=== PATIENT | female | born 1950 | race Caucasian/White ===

== ENCOUNTER → 2017-01-07 | Outpatient (CLI) | payer OTHER ==
[~2017-01-07] MED LIST: FLUT16SP IH; HYDR-2666 PO; HYDR-2869 PO; HYDR25TA9 PO; METO50TA10 PO; Meclizine Hcl PO
--- NOTE | 2017-01-07 13:03 | KCIC ---
PROCEDURE Limited right foot ultrasound dated 01/07/2017. HISTORY Lump on foot. TECHNIQUE Limited sonographic imaging performed. COMPARISON None. FINDINGS Sonographic imaging was performed over the area of palpable abnormality. Palpable abnormality appears to correlate with a complex cystic structure that measures 2.5 x 2.4 x 1.0 centimeter, located laterally in the subcutaneous tissues. IMPRESSION Complex cystic nodule in the lateral subcutaneous tissues correlates with the area of palpable abnormality. Findings are nonspecific and may represent a postoperative fluid collection or liquefying hematoma. Underlying cystic mass cannot be excluded. Recommend correlation with clinical history. Electronically signed by: Wale Marte (Jan 07, 2017 13:02:20)
== END | disposition home or self-care (01) ==
LOC: KCIC US 12:07
PROVIDERS: ATTEND Podiatrist Foot & Ankle Surgery
DX: M67.471 Ganglion, right ankle and foot (principal)
CPT/HCPCS: 76881

== ENCOUNTER 2017-01-09 06:14 | Observation (INO) | payer OTHER ==
[~2017-01-09] VITALS: Ht 160 cm; Wt 115.2 kg
--- NOTE | 2017-01-09 06:23 | PHYS DOC ---
Adult General Chief Complaint Chief Complaint: MULTIPLE COMPLAINTS HPI HPI Patient is a 66 year old female who presents with multiple complaints. She states she's having vertigo type symptoms for the last 7 weeks and saw her primary care about this and has been on meclizine that she is purchase [id number]. Sometimes she has to use a cane now to ambulate. She also complains of generalized bodyaches his been going on for last week with intermittent nausea and vomiting and intermittent chest pain. She states chest pains are left-sided sharp in nature doesn't radiate and nothing makes it better or worse. Sometimes it goes away completely another time the symptoms last for hours. She denies any diaphoresis, shortness of breath associated with this pain. She states her sister had a history of aortic dissection 18 months ago. She denies history of smoking cessation, and takes medicines for her high blood pressure. Review of Systems Review of Systems Constitutional: Denies fever or chills [] Eyes: Denies change in visual acuity, redness, or eye pain [] HENT: Denies nasal congestion or sore throat [] Respiratory: Denies cough or shortness of breath [] Cardiovascular: No additional information not addressed in HPI [] GI: Denies abdominal pain, nausea, vomiting, bloody stools or diarrhea [] : Denies dysuria or hematuria [] Musculoskeletal: Denies back pain or joint pain [] Integument: Denies rash or skin lesions [] Neurologic: Denies headache, focal weakness or sensory changes [] Endocrine: Denies polyuria or polydipsia [] Current Medications Current Medications Current Medications Medications (Trade) Dose Ordered Sig/Jerry Start Time Stop Time Status Last Admin Dose Admin Morphine Sulfate 2 mg 2 mg PRN Q15MIN PRN 01/09/17 06:30 01/10/17 06:29 01/09/17 06:47 2 MG Ondansetron HCl (Zofran) 4 mg PRN Q8HRS PRN 01/09/17 08:15 01/10/17 08:14 UNV Sodium Chloride (Iv Sodium Chloride 0.9% 1000ml Bag) 1,000 ml @ 1,000 mls/hr Q1H 01/09/17 06:30 01/09/17 07:29 DC 01/09/17 06:42 1,000 MLS/HR Allergies Allergies Allergies Coded Allergies Type Severity Reaction Last Updated Verified No Known Drug Allergies 01/09/17 No Physical Exam Physical Exam Constitutional: Well developed, well nourished, no acute distress, non-toxic appearance. [] HENT: Normocephalic, atraumatic, bilateral external ears normal, oropharynx moist, no oral exudates, nose normal. [] Eyes: PERRLA, EOMI, conjunctiva normal, no discharge. [] Neck: Normal range of motion, no tenderness, supple, no stridor. [] Cardiovascular:Heart rate regular rhythm, no murmur [] Lungs & Thorax: Bilateral breath sounds clear to auscultation [] Abdomen: Bowel sounds normal, soft, no tenderness, no masses, no pulsatile masses. [] Skin: Warm, dry, no erythema, no rash. [] Back: No tenderness, no CVA tenderness. [] Extremities: No tenderness, no cyanosis, no clubbing, ROM intact, no edema. [] Neurologic: Alert and oriented X 3, normal motor function, normal sensory function, no focal deficits noted. [] Psychologic: Affect normal, judgement normal, mood normal. [] Current Patient Data Vital Signs Vital Signs Date Time Temp Pulse Resp B/P Pulse Ox O2 Delivery O2 Flow Rate FiO2 01/09/17 07:17 88 16 166/66 92 Room Air 01/09/17 06:27 99.0 99.0 Lab Values Laboratory Tests Test 01/09/17 06:34 01/09/17 07:12 White Blood Count 12.1x10^3/uL (4.0-11.0) H Red Blood Count 4.24x10^6/uL (3.50-5.40) Hemoglobin 13.8g/dL (12.0-15.5) Hematocrit 39.7% (36.0-47.0) Mean Corpuscular Volume 94fL (79-100) Mean Corpuscular Hemoglobin 33pg (25-35) Mean Corpuscular Hemoglobin Concent 35g/dL (31-37) Red Cell Distribution Width 13.6% (11.5-14.5) Platelet Count 225x10^3/uL (140-400) Neutrophils (%) (Auto) 88% (31-73) H Lymphocytes (%) (Auto) 7% (24-48) L Monocytes (%) (Auto) 4% (0-9) Eosinophils (%) (Auto) 1% (0-3) Basophils (%) (Auto) 1% (0-3) Neutrophils # (Auto) 10.6x10^3uL (1.8-7.7) H Lymphocytes # (Auto) 0.9x10^3/uL (1.0-4.8) L Monocytes # (Auto) 0.5x10^3/uL (0.0-1.1) Eosinophils # (Auto) 0.1x10^3/uL (0.0-0.7) Basophils # (Auto) 0.1x10^3/uL (0.0-0.2) Platelet Estimate Pending Prothrombin Time 12.8SEC (11.7-14.0) Prothrombin Time INR 1.0 (0.8-1.1) Sodium Level 138mmol/L (136-145) Potassium Level 3.7mmol/L (3.5-5.1) Chloride Level 101mmol/L (98-107) Carbon Dioxide Level 29mmol/L (21-32) Anion Gap 8 (6-14) Blood Urea Nitrogen 14mg/dL (7-20) Creatinine 0.8mg/dL (0.6-1.0) Estimated GFR (Cockcroft-Gault) 72.2 Glucose Level 122mg/dL (70-99) H Calcium Level 8.7mg/dL (8.5-10.1) Magnesium Level 1.6mg/dL (1.8-2.4) L Total Bilirubin 0.3mg/dL (0.2-1.0) Direct Bilirubin 0.1mg/dL (0.0-0.2) Aspartate Amino Transferase (AST) 20U/L (15-37) Alanine Aminotransferase (ALT) 28U/L (14-59) Alkaline Phosphatase 98U/L (46-116) Creatine Kinase 73U/L (26-192) Creatine Kinase MB (Mass) 0.7ng/mL (0.0-3.6) Creatine Kinase MB Relative Index 1.0% (0-4) Troponin I Quantitative < 0.017ng/mL (0.000-0.055) UH-Vmw-M-Type Natriuretic Peptide 177pg/mL (0-124) H Total Protein 7.6g/dL (6.4-8.2) Albumin 3.2g/dL (3.4-5.0) L Lipase 81U/L (73-393) Thyroid Stimulating Hormone (TSH) 1.107uIU/mL (0.358-3.74) Urine Collection Type Unknown Urine Color Yellow Urine Clarity Turbid Urine pH 8.0 Urine Specific [place] 1.020 Urine Protein Negativemg/dL (NEG-TRACE) Urine Glucose (UA) Negativemg/dL (NEG) Urine Ketones (Stick) Negativemg/dL (NEG) Urine Blood Negative (NEG) Urine Nitrite Negative (NEG) Urine Bilirubin Negative (NEG) Urine Urobilinogen Dipstick 0.2mg/dL (0.2 mg/dL) Urine Leukocyte Esterase Negative (NEG) Urine RBC 0/HPF (0-2) Urine WBC 0/HPF (0-4) Urine Squamous Epithelial Cells Few/LPF Urine Amorphous Sediment Present/HPF Urine Bacteria 0/HPF (0-FEW) Laboratory Tests 01/09/17 06:34 Laboratory Tests 01/09/17 06:34 EKG EKG EKG shows sinus rhythm rate of [address] changes or T-wave inversions, incomplete right bundle-branch block morphology noted, QTC 362 ms, normal axis, as interpreted by me. Radiology/Procedures Radiology/Procedures [facility] [address] [place], [place] [id number] IMAGING REPORT Signed PATIENT: AKOSUA GALINDO ACCOUNT: [id number] : 1950 LOCATION: ER AGE: 66 SEX: F EXAM STATUS: REG ER ORD. PHYSICIAN: RUDDY GIFFODR MD REASON: vertigo PROCEDURE: CT HEAD WO CONTRAST CT of the head without contrast, 01/09/2017: History: Vertigo The ventricles are within normal limits in size. There is no shift of the midline structures. There is no evidence of acute intracranial hemorrhage or mass effect. The mastoid sinuses are clear. There is only minimal mucosal thickening in the right ethmoid sinus. IMPRESSION: No acute intracranial abnormality is detected. PQRS Compliance Statement: One or more of the following individualized dose reduction techniques were utilized for this examination: 1. Automated exposure control 2. Adjustment of the mA and/or kV according to patient size 3. Use of iterative reconstruction technique DICTATED and SIGNED BY: BAM PRIETO MD DATE: 01/09/17 0732 CC: AMAN DEXTER MD; RUDDY GIFFORD MD ~ [facility] [address] [place] [address] IMAGING REPORT Signed PATIENT: AKOSUA GALINDO ACCOUNT: [id number] : 1950 LOCATION: ER AGE: 66 SEX: F EXAM STATUS: REG ER ORD. PHYSICIAN: RUDDY GIFFORD MD REASON: chest pain PROCEDURE: PORTABLE CHEST 1V Portable chest, 01/09/2017: History: Chest pain The heart size and pulmonary vascularity are normal. There is minimal linear scarring or atelectasis in the left lateral costophrenic angle. The lungs are otherwise clear. There is no evidence of pleural fluid. IMPRESSION: Minimal left basilar linear scarring or atelectasis.. DICTATED and SIGNED BY: BAM PRIETO MD DATE: 01/09/17 0808 CC: AMAN DEXTER MD; RUDDY GIFFORD MD ~ Impressions: Chest pain Dizziness Course & Med Decision Making Course & Med Decision Making Pertinent Labs and Imaging studies reviewed. (See chart for details) EKG, labs, CT of her head does not show any acute abnormalities. Do not believe she is having a dissection that her sister had her chest x-ray does not show any acute abnormalities and her aortic knob looks fine. Her story does not match up with that of an aortic dissection. Patient is being admitted to the hospitalist I will obtain an MRI of her brain to further evaluate her dizziness that she's had for several weeks and obtained cardiology consultation. Patient' s agreeable plan is in stable condition this time. Dragon Disclaimer Dragon Disclaimer This electronic medical record was generated, in whole or in part, using a voice recognition dictation system. Departure Departure Referrals: NO PCP (PCP) RUDDY GIFFORD MD Jan 09, 2017 06:23
[2017-01-09] MEDS ORDERED: IV NORMAL SALINE 1000ML BAG 1,000 ML IV SCH (06:30)
[2017-01-09] MEDS ORDERED: MORPHINE SULFATE 2 MG/ML DISP.SYRIN. IV/SQ PRN (06:30)
[2017-01-09 06:46] LABS: BASO # 0.1 x10^3/uL (0.0-0.2); BASO % 1 % (0-3); EOS % 1 % (0-3); HEMATOCRIT 39.7 % (36.0-47.0); HEMOGLOBIN 13.8 g/dL (12.0-15.5); LYMPH # 0.9 x10^3/uL (1.0-4.8); LYMPH % 7 % (24-48); MEAN CORPUSCULAR HEMOGLOBIN 33 pg (25-35); MEAN CORPUSCULAR HGB CONC 35 g/dL (31-37); MEAN CORPUSCULAR VOLUME 94 fL (79-100); MONO % 4 % (0-9); NEUT % 88 % (31-73); PLATELET COUNT 225 x10^3/uL (140-400); RED BLOOD COUNT 4.24 x10^6/uL (3.50-5.40); RED CELL DISTRIBUTION WIDTH 13.6 % (11.5-14.5); WHITE BLOOD COUNT 12.1 x10^3/uL (4.0-11.0)
--- NOTE | 2017-01-09 06:55 | EKG ---
[facility] [address] [place] [address] Test Date: 2017-01-09 Test Time: 06:28:14 Pat Name: AKOSUA GALINDO Department: Room: Gender: F Rib Sawyer: : 1950 Requested By: RUDDY GIFFORD Order Number: [id number] Reading MD: Measurements Intervals [place] Rate: 92 P: 28 FL: 182 QRS: 36 QRSD: 92 T: 57 QT: 362 QTc: 453 Interpretive Statements SINUS RHYTHM INCOMPLETE RIGHT BUNDLE BRANCH BLOCK T ABNORMALITY IN HIGH LATERAL LEADS ABNORMAL ECG RI6.01 No previous ECG available for comparison
[2017-01-09 07:02] LABS: CALCIUM 8.7 mg/dL (8.5-10.1); CREATININE 0.8 mg/dL (0.6-1.0); GFR 72.2; POTASSIUM 3.7 mmol/L (3.5-5.1)
[2017-01-09 07:03] LABS: PROTHROMBIN TIME PATIENT 12.8 SEC (11.7-14.0)
[2017-01-09 07:08] LABS: ALBUMIN 3.2 g/dL (3.4-5.0); DIRECT BILIRUBIN 0.1 mg/dL (0.0-0.2); MAGNESIUM 1.6 mg/dL (1.8-2.4); TOTAL BILIRUBIN 0.3 mg/dL (0.2-1.0); TOTAL PROTEIN 7.6 g/dL (6.4-8.2)
--- NOTE | 2017-01-09 07:15 | RAD ---
Portable chest, 01/09/2017: History: Chest pain The heart size and pulmonary vascularity are normal. There is minimal linear scarring or atelectasis in the left lateral costophrenic angle. The lungs are otherwise clear. There is no evidence of pleural fluid. IMPRESSION: Minimal left basilar linear scarring or atelectasis..
[2017-01-09 07:16] LABS: CKMB MASS 0.7 ng/mL (0.0-3.6)
--- NOTE | 2017-01-09 07:37 | RAD ---
CT of the head without contrast, 01/09/2017: History: Vertigo The ventricles are within normal limits in size. There is no shift of the midline structures. There is no evidence of acute intracranial hemorrhage or mass effect. The mastoid sinuses are clear. There is only minimal mucosal thickening in the right ethmoid sinus. IMPRESSION: No acute intracranial abnormality is detected. PQRS Compliance Statement: One or more of the following individualized dose reduction techniques were utilized for this examination: 1. Automated exposure control 2. Adjustment of the mA and/or kV according to patient size 3. Use of iterative reconstruction technique
[2017-01-09 07:40] LABS: BILIRUBIN,URINE NEGATIVE (NEG); GLUCOSE,URINE NEGATIVE (NEG); NITRITE,URINE NEGATIVE (NEG); PROTEIN,URINE NEGATIVE (NEG-TRACE); UROBILINOGEN,URINE 0.2 mg/dL (0.2 mg/dL)
[2017-01-09 08:00] LABS: BACTERIA,URINE 0 /HPF (0-FEW); RBC,URINE 0 /HPF (0-2); SQUAMOUS EPITHELIAL CELL,UR FEW /LPF; WBC,URINE 0 /HPF (0-4)
[2017-01-09] MEDS ORDERED: ONDANSETRON PF 4 MG/2 ML VIAL. IV PRN (08:15)
[2017-01-09] MEDS ORDERED: ASPIRIN 325 MG TABLET PO ONE (08:30)
[2017-01-09] MEDS ORDERED: MAGNESIUM SULFATE 2GM 50 ML IV ONE (09:00)
--- NOTE | 2017-01-09 09:02 | PDOC2 ---
CARDIAC CONSULT DATE OF CONSULT Date of Consult DATE: 01/09/17 TIME: 08:56 REASON FOR CONSULT Reason for Consult: Chest pain REFERRING PHYSICIAN Referring Physician: Kaleb SOURCE Source: Chart review, Patient HISTORY OF PRESENT ILLNESS HISTORY OF PRESENT ILLNESS This is a pleasant 66 yo female admitted for complains of chest pain, body aches and vertigo. Reports that in the last 2 months she has been having intermittent left chest discomfort as well as vertigo. She does have hx of migraine which is controlled and takes excedrin for refractory episodes. She has been doing well otherwise till she got to [place]. [place] in high [place] and she started feeling SOA. She came home Saturday last week and her symptoms has increased in frequency. Her vertigo is more. Since Saturday when her CP occurs it last for about 20 minutes then dissipates. Her chest pain is still intermittent but more frequent and actually worse last night describing it as sharp that radiated to mid back. Also she has been feeling no energy and positive for mild HARRISON. Complains of body aches. Also nausea with her vertigo. Denies any CAD, VTE, falls, injury, fever or chills, CVA. No unilateral weakness, visual or auditory disturbances nor LEWIS. To add she is positive for HTN, HLP, varicose veins. Verbalized that they drove to [place] to [place] and back. PAST MEDICAL HISTORY Cardiovascular: HTN, Hyperlipidemia, Other (leg varicose veins) Pulmonary: No pertinent hx CENTRAL NERVOUS SYSTEM: Migraine, Other (RLS) GI: GERD, Other (hiatal hernia) Heme/Onc: No pertinent hx Hepatobiliary: No pertinent hx Psych: No pertinent hx Musculoskeletal: Osteoarthritis Rheumatologic: No pertinent hx Infectious disease: No pertinent hx ENT: No pertinent hx Renal/: UTI, Urinary Incontinence Endocrine: No pertinent hx Dermatology: No pertinent hx PAST SURGICAL HISTORY Past Surgical History: Total knee replacement (bilateral ), Other FAMILY HISTORY Family History: Coronary Artery Disease (Mother in her 60s), Other (sister aortic dissection; brother cardiac arrest at 50s) SOCIAL HISTORY Smoke: No ALCOHOL: occassional Drugs: None Lives: with Family CURRENT MEDICATIONS CURRENT MEDICATIONS Current Medications Medications (Trade) Dose Ordered Sig/Jerry Route PRN Reason Start Time Stop Time Status Last Admin Dose Admin Morphine Sulfate 2 mg 2 mg PRN Q15MIN PRN IV/SQ PAIN GREATER THAN 3/10 01/09/17 06:30 01/10/17 06:29 01/09/17 06:47 Sodium Chloride (Iv Sodium Chloride 0.9% 1000ml Bag) 1,000 ml @ 1,000 mls/hr Q1H IV 01/09/17 06:30 01/09/17 07:29 DC 01/09/17 06:42 ALLERGIES ALLERGIES: Coded Allergies: No Known Drug Allergies (Unverified , 01/09/17) ROS Review of System 14 point ROS evaluated with pertinent positives noted per HPI PHYSICAL EXAM General: Alert, Oriented X3, Cooperative, No acute distress HEENT: Atraumatic, Mucous membr. moist/pink Lungs: Clear to auscultation, Normal air movement Heart: Regular rate, Normal S1, Normal S2, No murmurs Abdomen: Soft, No tenderness Extremities: No cyanosis, No edema Skin: No breakdown, No significant lesion Neuro: Normal speech, Sensation intact Psych/Mental Status: Mental status NL, Mood NL MUSCULOSKELETAL: Osteoarthritic changes both hands VITALS VITALS Vital Signs Date Time Temp Pulse Resp B/P Pulse Ox O2 Delivery O2 Flow Rate FiO2 01/09/17 07:17 88 16 166/66 92 Room Air 01/09/17 06:27 99.0 99.0 LABS Lab: Laboratory Tests Test 01/09/17 06:34 01/09/17 07:12 White Blood Count 12.1x10^3/uL (4.0-11.0) Red Blood Count 4.24x10^6/uL (3.50-5.40) Hemoglobin 13.8g/dL (12.0-15.5) Hematocrit 39.7% (36.0-47.0) Mean Corpuscular Volume 94fL (79-100) Mean Corpuscular Hemoglobin 33pg (25-35) Mean Corpuscular Hemoglobin Concent 35g/dL (31-37) Red Cell Distribution Width 13.6% (11.5-14.5) Platelet Count 225x10^3/uL (140-400) Neutrophils (%) (Auto) 88% (31-73) Lymphocytes (%) (Auto) 7% (24-48) Monocytes (%) (Auto) 4% (0-9) Eosinophils (%) (Auto) 1% (0-3) Basophils (%) (Auto) 1% (0-3) Neutrophils # (Auto) 10.6x10^3uL (1.8-7.7) Lymphocytes # (Auto) 0.9x10^3/uL (1.0-4.8) Monocytes # (Auto) 0.5x10^3/uL (0.0-1.1) Eosinophils # (Auto) 0.1x10^3/uL (0.0-0.7) Basophils # (Auto) 0.1x10^3/uL (0.0-0.2) Prothrombin Time 12.8SEC (11.7-14.0) Prothromb Time International Ratio 1.0 (0.8-1.1) Sodium Level 138mmol/L (136-145) Potassium Level 3.7mmol/L (3.5-5.1) Chloride Level 101mmol/L (98-107) Carbon Dioxide Level 29mmol/L (21-32) Anion Gap 8 (6-14) Blood Urea Nitrogen 14mg/dL (7-20) Creatinine 0.8mg/dL (0.6-1.0) Estimated GFR (Cockcroft-Gault) 72.2 Glucose Level 122mg/dL (70-99) Calcium Level 8.7mg/dL (8.5-10.1) Magnesium Level 1.6mg/dL (1.8-2.4) Total Bilirubin 0.3mg/dL (0.2-1.0) Direct Bilirubin 0.1mg/dL (0.0-0.2) Aspartate Amino Transf (AST/SGOT) 20U/L (15-37) Alanine Aminotransferase (ALT/SGPT) 28U/L (14-59) Alkaline Phosphatase 98U/L (46-116) Creatine Kinase 73U/L (26-192) Creatine Kinase MB (Mass) 0.7ng/mL (0.0-3.6) Creatine Kinase MB Relative Index 1.0% (0-4) Troponin I Quantitative < 0.017ng/mL (0.000-0.055) [id number]-Type Natriuretic Peptide 177pg/mL (0-124) Total Protein 7.6g/dL (6.4-8.2) Albumin 3.2g/dL (3.4-5.0) Lipase 81U/L (73-393) Thyroid Stimulating Hormone (TSH) 1.107uIU/mL (0.358-3.74) Urine Collection Type Unknown Urine Color Yellow Urine Clarity Turbid Urine pH 8.0 Urine Specific [place] 1.020 Urine Protein Negativemg/dL (NEG-TRACE) Urine Glucose (UA) Negativemg/dL (NEG) Urine Ketones (Stick) Negativemg/dL (NEG) Urine Blood Negative (NEG) Urine Nitrite Negative (NEG) Urine Bilirubin Negative (NEG) Urine Urobilinogen Dipstick 0.2mg/dL (0.2 mg/dL) Urine Leukocyte Esterase Negative (NEG) Urine RBC 0/HPF (0-2) Urine WBC 0/HPF (0-4) Urine Squamous Epithelial Cells Few/LPF Urine Amorphous Sediment Present/HPF Urine Bacteria 0/HPF (0-FEW) ASSESSMENT/PLAN ASSESSMENT/PLAN 1. Chest pain: family hx of AoD(sister), SCA(brother), recent long distance travel 2. Acute vs chronic sinusitis: likely inducing vertigo 3. HTN: controlled 4. Hypomagnesemia 5. Morbid obesity 6. LE varicose veins Recommendations 1. CTA chest today, if no acute changes then will proceed with 2 day MPI with rest this afternoon and stress tomorrow 2. TTE today, check TSH, lipids 3. Replace Mg. Problems: EFE BURROWS APRN Jan 09, 2017 09:02
--- NOTE | 2017-01-09 10:12 | RAD ---
PROCEDURE MRI of the brain without contrast 01/09/2017 HISTORY Recent dizziness and headaches. TECHNIQUE Unenhanced T1 weighted sagittal and axial, T2 weighted axial and coronal and FLAIR, gradient echo and diffusion weighted axial images of the brain were obtained. FINDINGS The ventricles and sulci are within normal limits in size and configuration. Patchy and multiple small focal areas of abnormally increased signal intensity are seen within the periventricular and subcortical white matter of both cerebral hemispheres on the FLAIR and T2 weighted images consistent most likely with areas of relatively mild small vessel ischemic disease. No acute parenchymal abnormality is seen. No extra-axial fluid collection is noted. There is no MRI evidence of acute ischemia/infarction. Mild mucosal thickening is seen scattered throughout the paranasal sinuses. There is a small right mastoid effusion. Normal flow voids are seen within the major vascular structures surrounding the brain parenchyma. IMPRESSION No acute parenchymal abnormality is seen. Electronically signed by: Chris Keen MD (Jan 09, 2017 10:11:28)
[2017-01-09 10:13] LABS: CHOLESTEROL/HDL RATIO 2.4
[2017-01-09 10:14] LABS: PLT ESTIMATE ADEQUATE (ADEQUATE)
[2017-01-09] MEDS ORDERED: CONTRAST GIVEN MC PRN (10:15)
[2017-01-09] MEDS ORDERED: IOHEXOL 300 MG/ML 75 ML VIAL IV ONE (10:15)
--- NOTE | 2017-01-09 10:22 | ACF ---
Admit Criteria Forms Admit Criteria Forms Admit Criteria Forms CARDIOLOGY GRG Clinical Indications for Admission to Inpatient Care ( Place 'X' for any and all applicable criteria): Hospital admission is needed for appropriate care of the patient because of ANY ONE of the following (1): [ ] I. Hemodynamic instability as indicated by ALL of the following (1)(2)(3) (4)(5) [ ]a) Vital signs or other findings not as expected for chronic patient condition or baseline [ ]b) Instability indicated by ANY ONE of the following: [ ]i) Hypotension [ ]ii) Symptomatic Tachycardia unresponsive to treatment ( e.g., analgesia, fluids, sedation as indicated) [ ]iii) Inadequate perfusion indicated by ANY ONE of the following: [ ] 1) Lactic acidosis (> 2 mmol/L) [ ] 2) New abnormal capillary refill (> 3 seconds) [ ] 3) Reduced urine output [ ] 4) New altered mental status [ ]iv) Orthostatic vital sign changes unresponsive to treatment (e.g., fluids) [ ]v) IV inotropic or vasopressor medication required to maintain adequate blood pressure or perfusion [ ] II. Severe heart failure as indicated by ANY ONE of the following(17)(18) [ ]a) Respiratory distress [ ]b) Hypotension [ ]c) Anasarca (refractory to outpatient therapy) [ ]d) Cardiac arrhythmias of immediate concern [ ]e) Myocardial ischemia [ ] III. Cardiac arrhythmias or findings of immediate concern indicated by ANY ONE of the following (19)(20): [ ] a) Heart rhythms that are inherently dangerous or unstable indicated by ANY ONE of the following (21)(22)(23): [ ] i) Resuscitated ventricular fibrillation or cardiac arrest [ ] ii) Ventricular escape rhythm [ ] iii) Sustained ventricular tachycardia (30 seconds or more of ventricular rhythm at greater than 100 beats per minute) [ ] iv) Nonsustained ventricular tachycardia and ANY ONE of the following: [ ] 1) Suspected cardiac ischemia as cause or consequence of ventricular tachycardia [ ] 2) In setting of acute myocarditis [ ] b) Unstable cardiac conduction defects indicated by ANY ONE of the following(23)(24)(25) [ ] i) Type II second-degree atrioventricular block [ ]ii) Third-degree atrioventricular block [ ]iii) New-onset left bundle branch block with suspected myocardial ischemia [ ]c) Any heart rhythm and ANY ONE of the following (21)(22)(26)(27) (28) [ ] i) Continuous long-term ECG monitoring needed (e.g., initiation of drug requiring monitoring for more than 24 hours) [ ] ii) Patient has automatic implanted cardioverter defibrillator that is repeatedly firing, malfunctioning, or in need of immediate adjustment of settings beyond the scope of ambulatory or observation care [ ]d) Heart rhythms of concern due to ANY ONE of the following: [ ] i) Hypotension [ ] ii) Respiratory distress [ ] iii) Association with other significant symptoms (e.g., bradycardia with syncope or ongoing dizziness, supraventricular tachycardia with chest pain (14)(15)(17) [ ] IV. Monitoring for cardiac contusion beyond the scope of observation care needed [A](30)(31)(32) [ ] V. Surgical or device complication (e.g., valve replacement complication , pacemaker dysfunction) (35)(41)(44)(45)(46) [ ] . Inpatient palliative care needed. [B](49) Also use Inpatient Palliative Care Criteria [ ] VII. Nonbacterial thrombotic (marantic) endocarditis (36)(43)(47)(48) [X] VIII. Cardiology condition, symptom, or finding for which emergency and observation care has failed or are not considered appropriate. [ ] IX. Acute valvular disease requiring inpatient as indicated by ANY ONE of the following (41) [ ]a) Acute valvular regurgitation (42) [ ]b) Noninfectious valvulitis (43) [ ]c) Obstructive valve thrombosis [ ]d) Paravalvular leak [ ]e) Other significant valvular disorder remaining after emergency or observation level of care (as appropriate) [ ]X. Pericardial disease requiring inpatient treatment as indicated by ANY ONE of the following (33)(34)(35)(36)(37) [ ]a) Suspected tamponade (38)(39)(40) [ ]b) Hemopericardium [ ]c) Other significant pericardial disorder remaining after emergency or observation level of care (as appropriate) [ ] XI. Cardiac ischemia beyond scope of emergency and observation care. [ ] XII. Hypertension requiring inpatient treatment as indicated by ANY ONE of the following (6)(7)(8) [ ]a) SBP greater than 220 mm Hg or DBP greater than 120 mmHg despite treatment [ ]b) SBP greater than 140 mm Hg or DBP greater than 100 mm Hg with evidence of acute end organ damage as indicated by ANY ONE of the following [ ] i) Encephalopathy [ ] ii) Acute renal failure as indicated by new onset of ANY ONE of the following (9)(10)(11)(12)(13) [ ]1) 3-fold rise in serum creatinine from baseline [ ]2) Serum creatinine greater than 4 mg/dL ( 354 micromoles/L) with acute rise greater than 0.5 mg/dL (44.2 micromoles/L) [ ]3) Reduction of more than 75% in estimated glomerular filtration rate from baseline [ ]4) Estimated glomerular filtration rate less than 35 mL/min/1.73m2 (0.59 mL/sec/1.73m2) in child up to 18 years of age [ ]5) Cessation of urine output indicated by ALL of the following [ ]A. Adequate volume status [ ]B. Inadequate urine output as indicated by ANY ONE of the following [ ]a. Urine output less than 0.3 mL/kg/hr for 24 hours [ ]b. Anuria (urine output less than 0.1 mL/kg/hr) for 12 hours [ ] iii) Aortic dissection [ ] iv) Myocardial Ischemia [ ] v) Left ventricular heart failure [ ]vi) Retinal Hemorrhage [ ]vii) Other significant finding [ ]c) Hypertension in child requiring inpatient treatment as indicated by ALL of the following(14)(15)(16) [ ] i) Outpatient treatment not effective, not available, or not appropriate [ ]ii) SBP or DBP greater than 95th percentile for age [ ]iii) Evidence of acute end organ damage as indicated by ANY ONE of the following [ ]1) Altered mental status [ ]2) Acute renal failure as indicated by new onset of ANY ONE of the following(9)(10)(11)(12)(13) [ ]A. 3-fold rise in serum creatinine from baseline [ ]B. Serum creatinine greater than 4 mg/dL (354 micromoles/L) with acute rise greater than 0.5 mg/dL (44.2 micromoles/L) [ ]C. Reduction of more than 75% in estimated glomerular filtration rate from baseline [ ]D. Estimated glomerular filtration rate less than 35 mL/min/1.73m2 (0.59 mL/sec/1.73m2) in child up to 18 years of age [ ]E. Cessation of urine output indicated by ALL of the following [ ]a. Adequate volume status [ ]b. Inadequate urine output as indicated by ANY ONE of the following [ ]i) Urine output less than 0.3 mL/kg/hr for 24 hours [ ]ii) Anuria ( urine output less than 0.1 mL/kg/hr) for 12 hours [ ]3) Severe headache [ ]4) Visual disturbance [ ]5) Retinal hemorrhage [ ]6) Other significant finding [ ]XIII. Complications of transplanted heart indicated by ANY ONE of the following(61): [ ]a) Acute graft rejection requiring inpatient management (eg, intravenous immunosuppression)(62)(63) [ ]b) Acute graft heart failure indicated by ANY ONE of the following(64): [ ]i) Hemodynamic instability [ ]ii) Cardiac arrhythmias of immediate concern [ ]iii) Pulmonary edema that is very severe (eg, mechanical ventilation needed, imminent or likely, need for 100% oxygen to keep oxygen saturation above 90%) [ ]iv) Pulmonary edema that is persistent as indicated by ALL of the following: [ ]1) New need for oxygen therapy to keep oxygen saturation above 90% (or increased FiO2 need from baseline) [ ]2) Has not improved sufficiently with emergency department or observation care IV diuretics or other heart failure treatments[E] [ ]v) Altered mental status that is severe or persistent [ ]vi) Increased creatinine (new on laboratory test) with reduction of more than 50% in estimated glomerular filtration rate from baseline [ ]vii) Progressively (ongoing) rising creatinine (known from past laboratory test) with reduction of more than 25% in estimated glomerular filtration rate from baseline [ ]viii) Acute renal failure [ ]ix) Acute peripheral ischemia (eg, examination shows pulseless, cool, mottled, or cyanotic extremity) [ ]x) Pulmonary artery catheter monitoring needed [ ]xi) Other sign or symptom of heart failure requiring inpatient treatment (ie, too severe or not responsive to outpatient and observation care treatment) [ ]c) Infection requiring inpatient management (eg, Hemodynamic instability, need for intravenous antimicrobial treatment)(66)(67)(68)(69)(70) [ ]d) Cardiac allograft vasculopathy requiring inpatient management ( eg evidence of cardiac ischemia)(71) [ ]e) Other complication of transplanted heart (eg, stroke, severe pulmonary hypertension, severe valvular dysfunction) requiring inpatient management(72) The original [employer] content created by [facility] has been revised. The portions of the content which have been revised are identified through the use of italic text or in bold, and [facility] has neither reviewed nor approved the modified material. All other unmodified content is copyright [employer] [facility] [employer]. Please see references footnoted in the original [facility] [employer] edition 2016 ODESSA MIXON Jan 09, 2017 10:21
--- NOTE | 2017-01-09 12:11 | RAD ---
CTA of the chest with contrast, 01/09/2017: History: Chest pain, possible pulmonary emboli Multidetector CT imaging was performed following an IV bolus injection of iodinated contrast material. Multiplanar reconstructions were produced including coronal and sagittal MIP images. The main pulmonary artery is enlarged measuring 3.8 cm in width. No filling defects are seen in the pulmonary arteries to suggest pulmonary emboli. The thoracic aorta is of normal caliber. There is no evidence of aortic dissection. There are calcified mediastinal and left hilar lymph nodes compatible with old granulomatous disease. No mediastinal or hilar adenopathy is evident. There is a small hiatal hernia. There are granulomatous calcifications in the left upper lobe. There are a few scattered linear parenchymal scars. There is mild dependent atelectasis in both lungs. No pulmonary mass or significant consolidation is seen. There is no evidence of pleural fluid. There are moderate scattered spurs in the spine. There is mild loss of height of the T12 vertebral body of indeterminate age. IMPRESSION: 1. No CT evidence of central pulmonary emboli. 2. Mild enlargement of the main pulmonary artery. 3. Small hiatal hernia. 4. Mild T12 vertebral compression deformity of indeterminate age. PQRS Compliance Statement: One or more of the following individualized dose reduction techniques were utilized for this examination: 1. Automated exposure control 2. Adjustment of the mA and/or kV according to patient size 3. Use of iterative reconstruction technique
[2017-01-09 12:43] VITALS: BP 131/75
[2017-01-09 12:44] VITALS: BP 131/75
[2017-01-09 13:00] VITALS: BP 131/75
[2017-01-09 14:50] VITALS: BP 135/73
--- NOTE | 2017-01-09 15:38 | CARD ---
APPROVED REPORT EXAM: Two-dimensional and M-mode echocardiogram with Doppler and color Doppler. Other Information Quality : GoodHR: 90bpm Rhythm : NSR INDICATION Chest Pain RISK FACTORS Hypertension Obesity 2D DIMENSIONS RVDd2.9 (2.9-3.5cm)Left Atrium(2D)3.6 (1.6-4.0cm) IVSd1.0 (0.7-1.1cm)Aortic Root(2D)1.8 (2.0-3.7cm) LVDd4.9 (3.9-5.9cm)LVOT Diameter2.3 (1.8-2.4cm) PWd0.9 (0.7-1.1cm)LVDs2.8 (2.5-4.0cm) FS (%) 43.2 %SV83.2 ml LVEF(%)74.2 (>50%) Aortic Valve AoV Peak Supa.201.7cm/sAoV VTI36.3cm AO Peak GR.16.3mmHgLVOT VTI 24.92cm AO Mean GR.9mmHg Mitral Valve MV E Tyoemnfc42.4cm/sMV E Peak Gr.3mmHg MV DECEL [id number] A Krokcedp36.1cm/s MV E Mean Gr.2mmHgE/A Ratio0.8 MV A [id number] TDI Lateral E' P. V9.27cm/sMedial E' P. V9.98cm/s E/Lateral E'8.2E/Medial E'7.7 Tricuspid Valve TR P. [id number]/sRAP [id number] TR Peak Gr.45mmHg Pulmonary Vein S1 Wnotnjdv24.5cm/sS2 Dvfbsqaa69.55cm/s D2 Aszndmaw55.5cm/sPVa [id number] LEFT VENTRICLE The left ventricle is normal size. There is normal left ventricular wall thickness. The left ventricu lar systolic function is normal. The Ejection Fraction is 65-70%. There is normal LV segmental wall m otion. Transmitral Doppler flow pattern is Grade I-abnormal relaxation pattern. RIGHT VENTRICLE The right ventricle is normal size. There is normal right ventricular wall thickness. The right ventr icular systolic function is normal. ATRIA The left atrium size is normal. The right atrium size is normal. The interatrial septum is intact wit h no evidence for an atrial septal defect or patent foramen ovale as noted on 2-D or Doppler imaging. AORTIC VALVE The aortic valve is mildly thickened. The aortic valve is trileaflet. Doppler and Color Flow revealed no significant aortic regurgitation. There is no significant aortic valvular stenosis. MITRAL VALVE The mitral valve leaflets are thickened. There is no evidence of mitral valve prolapse. There is no m itral valve stenosis. Doppler and Color Flow revealed trace mitral regurgitation. TRICUSPID VALVE Doppler and Color Flow revealed trace tricuspid regurgitation. The pulmonary artery systolic pressure is estimated at 48 mmHg. There is moderate pulmonary hypertension. PULMONIC VALVE The pulmonary valve is normal in structure and function. Doppler and Color Flow revealed no pulmonic valvular regurgitation. There is no pulmonic valvular stenosis. GREAT VESSELS The aortic root is normal in size. The ascending aorta is normal in size. The pulmonary artery is nor mal. The IVC is normal in size and collapses >50% with inspiration. PERICARDIAL EFFUSION There is no evidence of significant pericardial effusion. Critical Notification Critical Value: No <Conclusion> The left ventricular systolic function is normal. The Ejection Fraction is 65-70%. There is normal LV segmental wall motion. Transmitral Doppler flow pattern is Grade I-abnormal relaxation pattern. Trace mitral regurgitation. Trace tricuspid regurgitation. The pulmonary artery systolic pressure is estimated at 48 mmHg. There is no evidence of significant pericardial effusion.
[2017-01-09] MEDS ORDERED: FLUT16SP IH (15:50)
[2017-01-09] MEDS ORDERED: METO50TA10 PO (15:50)
[2017-01-09] MEDS ORDERED: HYDR25TA9 PO (15:50)
[2017-01-09] MEDS ORDERED: HYDR-2869 PO (15:50)
[2017-01-09] MEDS ORDERED: HYDR-2666 PO (16:04)
--- NOTE | 2017-01-09 16:07 | HP ---
ADMIT DATE: 01/09/2017 CHIEF COMPLAINT: Chest pain and dizziness. HISTORY OF PRESENT ILLNESS: The patient is a pleasant middle-aged female who presents with chest pain and dizziness. She has been having dizziness for 7 weeks. Her primary care doctor tried meclizine, but she does not seem ____ is working. I discussed the case with the ER physician. We are going to admit the patient and consult Cardiology and Neurology. PAST MEDICAL HISTORY: Anxiety. ALLERGIES: None. FAMILY HISTORY: Hypertension. SOCIAL HISTORY: She does not drink, smoke, or take drugs. MEDICATIONS: Reviewed. Please refer to the MRAD. REVIEW OF SYSTEMS: GENERAL: No history of weight change, weakness, or fevers. SKIN: No bruising, hair changes, or rashes. EYES: No blurred, double, or loss of vision. NOSE AND THROAT: No history of nosebleeds, hoarseness, or sore throat. HEART: The patient complains of chest pain. LUNGS: Denies cough, hemoptysis, wheezing, or shortness of breath. GASTROINTESTINAL: Denies changes in appetite, nausea, vomiting, diarrhea, or constipation. GENITOURINARY: No history of frequency, urgency, hesitancy, or nocturia. NEUROLOGIC: The patient complains of dizziness. PSYCHIATRIC: No history of panic, anxiety, or depression. ENDOCRINE: No history of heat or cold intolerance, polyuria, or polydipsia. EXTREMITIES: Denies muscle weakness, joint pain, pain on walking, or stiffness. PHYSICAL EXAMINATION: VITAL SIGNS: Temperature afebrile, pulse 67, respirations 22, and blood pressure 114/90. GENERAL: She is alert, cooperative, and little anxious. HEART: Normal S1, S2. LUNGS: Clear. ABDOMEN: Soft. EXTREMITIES: No edema. SKIN: No rashes. PSYCHIATRIC: She is anxious. VASCULAR: Good capillary refill. ENDOCRINE: No thyromegaly. LYMPHATICS: No cervical nodes. LABORATORY DATA: White count 12, hemoglobin 14, and platelets 225. Electrolytes are pending. Troponin is 0. INR is 1. Urinalysis is negative. CTA of the chest was negative for clots. There was a small hiatal hernia and small compression deformity in T12. MRI of the brain is negative. Chest x-ray, some left basilar atelectasis. CT of the head is negative. ASSESSMENT AND PLAN: Chest pain and vertigo. The patient has been admitted. We will check serial enzymes and serial EKGs. Consult Cardiology, consult Neurology. Cardiac monitoring. Suspect she might need a stress test, daily aspirin, and resume home medicines. JUAN JONES DO DR: MILKA/mitchell JOB#: [id number] / [id number]
[2017-01-09] MEDS ORDERED: MORPHINE SULFATE 2 MG/ML DISP.SYRIN. IV PRN (16:15)
[2017-01-09] MEDS: HYDROCODONE/APAP 5/325MG TABLET. PO PRN (17:24)
[2017-01-09] MEDS: HYDRALAZINE 50 MG TABLET PO SCH ×2 (17:25→21:19)
[2017-01-09] MEDS: METOPROLOL SUCC 24HR ER 50 MG TAB.ER.24H. PO SCH (17:25)
[2017-01-09] MEDS: HYDROCHLOROTHIAZIDE 25 MG TABLET PO SCH (17:26)
[2017-01-09 19:00] VITALS: BP 103/64
[2017-01-09 23:00] VITALS: BP 116/66
[2017-01-10 06:58] LABS: BASO % 0 % (0-3); EOS % 1 % (0-3); HEMATOCRIT 39.7 % (36.0-47.0); LYMPH # 1.2 x10^3/uL (1.0-4.8); LYMPH % 16 % (24-48); MEAN CORPUSCULAR HEMOGLOBIN 32 pg (25-35); MEAN CORPUSCULAR HGB CONC 33 g/dL (31-37); MEAN CORPUSCULAR VOLUME 97 fL (79-100); MONO % 6 % (0-9); NEUT % 77 % (31-73); PLATELET COUNT 210 x10^3/uL (140-400); RED BLOOD COUNT 4.12 x10^6/uL (3.50-5.40); RED CELL DISTRIBUTION WIDTH 13.6 % (11.5-14.5); WHITE BLOOD COUNT 7.3 x10^3/uL (4.0-11.0)
[2017-01-10 07:13] LABS: CALCIUM 8.4 mg/dL (8.5-10.1); CREATININE 0.7 mg/dL (0.6-1.0); GFR 84.2; POTASSIUM 3.6 mmol/L (3.5-5.1)
[2017-01-10] MEDS ORDERED: REGADENOSON 0.4 MG/5 ML DISP.SYRIN. IV ONE (07:45)
[2017-01-10] MEDS: FLUTICASONE 50MCG/NASAL SPRAY 16GM BOTTLE. NS SCH (09:00)
[2017-01-10] MEDS: HYDROCODONE/APAP 5/325MG TABLET. PO PRN ×2 (10:32→20:59)
[2017-01-10] MEDS: METOPROLOL SUCC 24HR ER 50 MG TAB.ER.24H. PO SCH (10:33)
[2017-01-10] MEDS: HYDRALAZINE 50 MG TABLET PO SCH ×3 (10:34→20:58)
[2017-01-10] MEDS: HYDROCHLOROTHIAZIDE 25 MG TABLET PO SCH (10:34)
--- NOTE | 2017-01-10 12:07 | PDOC ---
CARDIO Progress Notes Date and Time Date of Service 01/10/2017 Time of Evaluation 1200 Subjective Subjective: No Chest Pain, No shortness of breath, No Palpitations, No Dizziness Vitals Vitals Vital Signs Date Time Temp Pulse Resp B/P Pulse Ox O2 Delivery O2 Flow Rate FiO2 01/10/17 10:34 76 116/66 01/10/17 10:32 18 Room Air 01/09/17 23:00 98.8 89 98.8 Weight Weight [ ] Input and Output Intake and Output Intake and Output 01/10/17 07:00 Intake Total 1850 ml Balance 1850 ml Intake Oral 600 ml IV Total 1250 ml # Voids 7 Laboratory Labs Laboratory Tests Test 01/09/17 14:05 01/09/17 20:15 01/10/17 05:55 Troponin I Quantitative < 0.017ng/mL (0.000-0.055) < 0.017ng/mL (0.000-0.055) White Blood Count 7.3x10^3/uL (4.0-11.0) Red Blood Count 4.12x10^6/uL (3.50-5.40) Hemoglobin 13.0g/dL (12.0-15.5) Hematocrit 39.7% (36.0-47.0) Mean Corpuscular Volume 97fL (79-100) Mean Corpuscular Hemoglobin 32pg (25-35) Mean Corpuscular Hemoglobin Concent 33g/dL (31-37) Red Cell Distribution Width 13.6% (11.5-14.5) Platelet Count 210x10^3/uL (140-400) Neutrophils (%) (Auto) 77% (31-73) Lymphocytes (%) (Auto) 16% (24-48) Monocytes (%) (Auto) 6% (0-9) Eosinophils (%) (Auto) 1% (0-3) Basophils (%) (Auto) 0% (0-3) Neutrophils # (Auto) 5.6x10^3uL (1.8-7.7) Lymphocytes # (Auto) 1.2x10^3/uL (1.0-4.8) Monocytes # (Auto) 0.5x10^3/uL (0.0-1.1) Eosinophils # (Auto) 0.1x10^3/uL (0.0-0.7) Basophils # (Auto) 0.0x10^3/uL (0.0-0.2) Sodium Level 140mmol/L (136-145) Potassium Level 3.6mmol/L (3.5-5.1) Chloride Level 102mmol/L (98-107) Carbon Dioxide Level 31mmol/L (21-32) Anion Gap 7 (6-14) Blood Urea Nitrogen 11mg/dL (7-20) Creatinine 0.7mg/dL (0.6-1.0) Estimated GFR (Cockcroft-Gault) 84.2 Glucose Level 101mg/dL (70-99) Calcium Level 8.4mg/dL (8.5-10.1) Physical Exam HEENT: Neck Supple W Full Motion Chest: Symmetric LUNGS: Clear to Auscultation Heart: S1S2, RRR (SR) Abdomen: Soft N/T Extremities: No Calf Tenderness Neurology: alert, oriented, follow commands Assessment Assessment 1. Chest pain: likely MSK. CTA neg for aneurysm, PE 2. Chronic sinusitis?: per MRI. likely inducing vertigo, defer to PCP 3. HTN: controlled 4. Morbid obesity 5. ?OBDULIO with notable mild to moderate pulmonary HTN via TTE Recommendations 1. Recommend OBDULIO oupt w/u 2. Lipids and TSH on goal. Start on ECASA 81 mg for primary prevention 3. If MPI unremarkable then may DC per cardiac standpoint 4. Encouraged lifestyle modifications EFE BURROWS APRN Jan 10, 2017 12:07
--- NOTE | 2017-01-10 13:10 | PDOC ---
PROGRESS NOTES Chief Complaint Chief Complaint cc: dizziness A/p 1. Chest pain atypical, stress test pending, work up so far, CTA, No PE 2. . HTN: controlled Plan Stress test labs reviwed, cardiology following Neurology consult PT/OT History of Present Illness History of Present Illness NO HEADACHES NO CHEST PAIN Vitals Vitals Vital Signs Date Time Temp Pulse Resp B/P Pulse Ox O2 Delivery O2 Flow Rate FiO2 01/10/17 10:34 76 116/66 01/10/17 10:32 18 Room Air 01/09/17 23:00 98.8 89 98.8 Physical Exam General: Alert, Oriented X3, Cooperative, No acute distress Heart: Regular rate, Normal S1, Normal S2, No murmurs Lungs: Clear Abdomen: Soft, No tenderness Extremities: No cyanosis, No edema Skin: No breakdown, No significant lesion Labs LABS Laboratory Tests Test 01/09/17 14:05 01/09/17 20:15 01/10/17 05:55 Troponin I Quantitative < 0.017ng/mL (0.000-0.055) < 0.017ng/mL (0.000-0.055) White Blood Count 7.3x10^3/uL (4.0-11.0) Red Blood Count 4.12x10^6/uL (3.50-5.40) Hemoglobin 13.0g/dL (12.0-15.5) Hematocrit 39.7% (36.0-47.0) Mean Corpuscular Volume 97fL (79-100) Mean Corpuscular Hemoglobin 32pg (25-35) Mean Corpuscular Hemoglobin Concent 33g/dL (31-37) Red Cell Distribution Width 13.6% (11.5-14.5) Platelet Count 210x10^3/uL (140-400) Neutrophils (%) (Auto) 77% (31-73) Lymphocytes (%) (Auto) 16% (24-48) Monocytes (%) (Auto) 6% (0-9) Eosinophils (%) (Auto) 1% (0-3) Basophils (%) (Auto) 0% (0-3) Neutrophils # (Auto) 5.6x10^3uL (1.8-7.7) Lymphocytes # (Auto) 1.2x10^3/uL (1.0-4.8) Monocytes # (Auto) 0.5x10^3/uL (0.0-1.1) Eosinophils # (Auto) 0.1x10^3/uL (0.0-0.7) Basophils # (Auto) 0.0x10^3/uL (0.0-0.2) Sodium Level 140mmol/L (136-145) Potassium Level 3.6mmol/L (3.5-5.1) Chloride Level 102mmol/L (98-107) Carbon Dioxide Level 31mmol/L (21-32) Anion Gap 7 (6-14) Blood Urea Nitrogen 11mg/dL (7-20) Creatinine 0.7mg/dL (0.6-1.0) Estimated GFR (Cockcroft-Gault) 84.2 Glucose Level 101mg/dL (70-99) Calcium Level 8.4mg/dL (8.5-10.1) Assessment and Plan Assessmemt and Plan Problems Medical Problems: (1) Chest pain Status: Acute Problems: Comment Review of Relevant I have reviewed the following items shyla (where applicable) has been applied. Labs Laboratory Tests Test 01/09/17 06:34 01/09/17 07:12 01/09/17 14:05 01/09/17 20:15 White Blood Count 12.1x10^3/uL (4.0-11.0) Red Blood Count 4.24x10^6/uL (3.50-5.40) Hemoglobin 13.8g/dL (12.0-15.5) Hematocrit 39.7% (36.0-47.0) Mean Corpuscular Volume 94fL (79-100) Mean Corpuscular Hemoglobin 33pg (25-35) Mean Corpuscular Hemoglobin Concent 35g/dL (31-37) Red Cell Distribution Width 13.6% (11.5-14.5) Platelet Count 225x10^3/uL (140-400) Neutrophils (%) (Auto) 88% (31-73) Lymphocytes (%) (Auto) 7% (24-48) Monocytes (%) (Auto) 4% (0-9) Eosinophils (%) (Auto) 1% (0-3) Basophils (%) (Auto) 1% (0-3) Neutrophils # (Auto) 10.6x10^3uL (1.8-7.7) Lymphocytes # (Auto) 0.9x10^3/uL (1.0-4.8) Monocytes # (Auto) 0.5x10^3/uL (0.0-1.1) Eosinophils # (Auto) 0.1x10^3/uL (0.0-0.7) Basophils # (Auto) 0.1x10^3/uL (0.0-0.2) Segmented Neutrophils % 88% (35-66) Band Neutrophils % 7% (0-9) Lymphocytes % 4% (24-48) Monocytes % 1% (0-10) Platelet Estimate Adequate (ADEQUATE) Prothrombin Time 12.8SEC (11.7-14.0) Prothromb Time International Ratio 1.0 (0.8-1.1) Sodium Level 138mmol/L (136-145) Potassium Level 3.7mmol/L (3.5-5.1) Chloride Level 101mmol/L (98-107) Carbon Dioxide Level 29mmol/L (21-32) Anion Gap 8 (6-14) Blood Urea Nitrogen 14mg/dL (7-20) Creatinine 0.8mg/dL (0.6-1.0) Estimated GFR (Cockcroft-Gault) 72.2 Glucose Level 122mg/dL (70-99) Calcium Level 8.7mg/dL (8.5-10.1) Magnesium Level 1.6mg/dL (1.8-2.4) Total Bilirubin 0.3mg/dL (0.2-1.0) Direct Bilirubin 0.1mg/dL (0.0-0.2) Aspartate Amino Transf (AST/SGOT) 20U/L (15-37) Alanine Aminotransferase (ALT/SGPT) 28U/L (14-59) Alkaline Phosphatase 98U/L (46-116) Creatine Kinase 73U/L (26-192) Creatine Kinase MB (Mass) 0.7ng/mL (0.0-3.6) Creatine Kinase MB Relative Index 1.0% (0-4) Troponin I Quantitative < 0.017ng/mL (0.000-0.055) < 0.017ng/mL (0.000-0.055) < 0.017ng/mL (0.000-0.055) MB-Ewo-W-Type Natriuretic Peptide 177pg/mL (0-124) Total Protein 7.6g/dL (6.4-8.2) Albumin 3.2g/dL (3.4-5.0) Triglycerides Level 43mg/dL (0-150) Cholesterol Level 186mg/dL (0-200) LDL Cholesterol, Calculated 98mg/dL (0-100) VLDL Cholesterol, Calculated 9mg/dL (0-40) HDL Cholesterol 79mg/dL (40-60) Cholesterol/HDL Ratio 2.4 Lipase 81U/L (73-393) Thyroid Stimulating Hormone (TSH) 1.107uIU/mL (0.358-3.74) Urine Collection Type Unknown Urine Color Yellow Urine Clarity Turbid Urine pH 8.0 Urine Specific [place] 1.020 Urine Protein Negativemg/dL (NEG-TRACE) Urine Glucose (UA) Negativemg/dL (NEG) Urine Ketones (Stick) Negativemg/dL (NEG) Urine Blood Negative (NEG) Urine Nitrite Negative (NEG) Urine Bilirubin Negative (NEG) Urine Urobilinogen Dipstick 0.2mg/dL (0.2 mg/dL) Urine Leukocyte Esterase Negative (NEG) Urine RBC 0/HPF (0-2) Urine WBC 0/HPF (0-4) Urine Squamous Epithelial Cells Few/LPF Urine Amorphous Sediment Present/HPF Urine Bacteria 0/HPF (0-FEW) Test 01/10/17 05:55 White Blood Count 7.3x10^3/uL (4.0-11.0) Red Blood Count 4.12x10^6/uL (3.50-5.40) Hemoglobin 13.0g/dL (12.0-15.5) Hematocrit 39.7% (36.0-47.0) Mean Corpuscular Volume 97fL (79-100) Mean Corpuscular Hemoglobin 32pg (25-35) Mean Corpuscular Hemoglobin Concent 33g/dL (31-37) Red Cell Distribution Width 13.6% (11.5-14.5) Platelet Count 210x10^3/uL (140-400) Neutrophils (%) (Auto) 77% (31-73) Lymphocytes (%) (Auto) 16% (24-48) Monocytes (%) (Auto) 6% (0-9) Eosinophils (%) (Auto) 1% (0-3) Basophils (%) (Auto) 0% (0-3) Neutrophils # (Auto) 5.6x10^3uL (1.8-7.7) Lymphocytes # (Auto) 1.2x10^3/uL (1.0-4.8) Monocytes # (Auto) 0.5x10^3/uL (0.0-1.1) Eosinophils # (Auto) 0.1x10^3/uL (0.0-0.7) Basophils # (Auto) 0.0x10^3/uL (0.0-0.2) Sodium Level 140mmol/L (136-145) Potassium Level 3.6mmol/L (3.5-5.1) Chloride Level 102mmol/L (98-107) Carbon Dioxide Level 31mmol/L (21-32) Anion Gap 7 (6-14) Blood Urea Nitrogen 11mg/dL (7-20) Creatinine 0.7mg/dL (0.6-1.0) Estimated GFR (Cockcroft-Gault) 84.2 Glucose Level 101mg/dL (70-99) Calcium Level 8.4mg/dL (8.5-10.1) Laboratory Tests Test 01/09/17 14:05 01/09/17 20:15 01/10/17 05:55 Troponin I Quantitative < 0.017ng/mL (0.000-0.055) < 0.017ng/mL (0.000-0.055) White Blood Count 7.3x10^3/uL (4.0-11.0) Red Blood Count 4.12x10^6/uL (3.50-5.40) Hemoglobin 13.0g/dL (12.0-15.5) Hematocrit 39.7% (36.0-47.0) Mean Corpuscular Volume 97fL (79-100) Mean Corpuscular Hemoglobin 32pg (25-35) Mean Corpuscular Hemoglobin Concent 33g/dL (31-37) Red Cell Distribution Width 13.6% (11.5-14.5) Platelet Count 210x10^3/uL (140-400) Neutrophils (%) (Auto) 77% (31-73) Lymphocytes (%) (Auto) 16% (24-48) Monocytes (%) (Auto) 6% (0-9) Eosinophils (%) (Auto) 1% (0-3) Basophils (%) (Auto) 0% (0-3) Neutrophils # (Auto) 5.6x10^3uL (1.8-7.7) Lymphocytes # (Auto) 1.2x10^3/uL (1.0-4.8) Monocytes # (Auto) 0.5x10^3/uL (0.0-1.1) Eosinophils # (Auto) 0.1x10^3/uL (0.0-0.7) Basophils # (Auto) 0.0x10^3/uL (0.0-0.2) Sodium Level 140mmol/L (136-145) Potassium Level 3.6mmol/L (3.5-5.1) Chloride Level 102mmol/L (98-107) Carbon Dioxide Level 31mmol/L (21-32) Anion Gap 7 (6-14) Blood Urea Nitrogen 11mg/dL (7-20) Creatinine 0.7mg/dL (0.6-1.0) Estimated GFR (Cockcroft-Gault) 84.2 Glucose Level 101mg/dL (70-99) Calcium Level 8.4mg/dL (8.5-10.1) Medications Current Medications Morphine Sulfate 2 mg 2 mg PRN Q15MIN PRN IV/SQ PAIN GREATER THAN 3/10 Last administered on 01/09/17 06:47; Start 01/09/17 at 06:30; Stop 01/10/17 at 06:29 ; Status DC Sodium Chloride (Iv Sodium Chloride 0.9% 1000ml Bag) 1,000 ml @ 1,000 mls/hr Q1H IV Last administered on 01/09/17 06:42; Start 01/09/17 at 06:30; Stop 09/15 at 07:29; Status DC Ondansetron HCl (Zofran) 4 mg PRN Q8HRS PRN IV NAUSEA/VOMITING; Start 01/09/17 at 08:15; Stop 01/10/17 at 08:14; Status DC Aspirin 325 mg 325 mg 1X ONCE PO Last administered on 01/09/17 09:34; Start 01/09/17 at 08:30; Stop 01/09/17 at 08:31; Status DC Magnesium Sulfate/ Dextrose (Magnesium Sulfate PREMIX 2GM) 50 ml @ 25 mls/hr 1X ONCE IV Last administered on 01/09/17 09:35; Start 01/09/17 at 09:00; Stop 01/09/17 at 10:59; Status DC Iohexol (Omnipaque 300 Mg/ml) 75 ml 1X ONCE IV Last administered on 01/09/17 10:34; Start 01/09/17 at 10:15; Stop 01/09/17 at 10:16; Status DC Info (Do NOT chart on this entry -- for MONITORING) 1 each PRN DAILY PRN MC SEE COMMENTS; Start 01/09/17 at 10:15; Stop 01/11/17 at 10:14 Morphine Sulfate 2 mg PRN Q2HR PRN IV PAIN; Start 01/09/17 at 16:15 Fluticasone Propionate (Flonase) 2 spray DAILY NS ; Start 01/10/17 at 09:00 Hydralazine HCl (Apresoline) 50 mg TID PO Last administered on 01/10/17 10:34 ; Start 01/09/17 at 16:30 Hydrochlorothiazide (Hydrodiuril) 25 mg DAILY PO Last administered on 10:34; Start 01/09/17 at 16:30 Acetaminophen/ Hydrocodone Bitart (Lortab 5/325) 1 tab Q6HRS PRN PO PAIN Last administered on 01/10/17 10:32; Start 01/09/17 at 16:15 Metoprolol Succinate (Toprol Xl) 50 mg DAILY PO Last administered on 01/10/17 10:33; Start 01/09/17 at 16:30 Regadenoson (Lexiscan) 0.4 mg 1X ONCE IV Last administered on 01/10/17 07:45 ; Start 01/10/17 at 07:45; Stop 01/10/17 at 07:46; Status DC Active Scripts Active Reported Hydrocodone-Apap 5-325 (Hydrocodone Bit/Acetaminophen) 1 Each Tablet 1 Tab PO Q4-6 PRN Fluticasone Propionate Nasal [place] (Fluticasone Propionate) 16 Gm [place].susp 2 [place] IH DAILY Metoprolol Succinate 50 Mg Tab.er.24h 50 Mg PO DAILY Hydrochlorothiazide Tablet (Hydrochlorothiazide) 25 Mg Tablet 25 Mg PO DAILY Hydralazine Hcl 50 Mg Tablet 50 Mg PO TID Vitals/I & O Vital Sign - Last 24 Hours 01/09/17 01/09/17 01/09/17 01/09/17 14:50 17:24 17:25 17:25 Temp 98.1 98.1 Pulse 85 85 85 Resp 18 B/P 135/73 135/73 135/73 Pulse Ox 91 O2 Delivery Room Air Room Air 01/09/17 01/09/17 01/09/17 01/09/17 19:00 20:00 21:19 23:00 Temp 98.5 98.8 98.5 98.8 Pulse 59 59 76 Resp 19 17 B/P 103/64 103/64 116/66 Pulse Ox 92 89 O2 Delivery Room Air Room Air Room Air 01/10/17 01/10/17 01/10/17 10:32 10:33 10:34 Pulse 76 76 Resp 18 B/P 116/66 116/66 O2 Delivery Room Air Intake and Output 01/09/17 01/09/17 01/10/17 15:00 23:00 07:00 Intake Total 1250 ml 600 ml Balance 1250 ml 600 ml HENRY BROWER MD Jan 10, 2017 13:09
[2017-01-10] MEDS: ASPIRIN ENTERIC COATED 81 MG TABLET.DR. PO SCH (14:00)
--- NOTE | 2017-01-10 14:02 | RAD ---
APPROVED REPORT Test Type: Pharmacological Stress Nurse/Tech: Nikkie Wilder R.N. Test Indications: Chest pain. Cardiac History: HTN Medications: SEE EMR Medical History: SEE EMR Resting ECG: SR Resting Heart Rate: 71 bpm Resting Blood Pressure: 124/64mmHg Pretest Chest Pain: None Nurse/Tech Notes S1S2, lungs CTA , denied chest pain and SOA. Consent: The procedure was explained to the patient in lay terms. Informed consent was witnessed. Jamal eout was entered into [employer]. History and Stress Test performed by Nikkie Wilder R.N. Pharm. Details Pharmacologic stress testing was performed using 0.4mg per 5ml of regadenoson given intravenously ove r 7-10 seconds. Stress Symptoms Nausea. POST EXERCISE Reason for Termination: Infusion complete Max HR: 117 bpm Max Blood Pressure: 127/60mmHg Blood Pressure response to exercise: Normal blood pressure response during stress. Heart Rate response to exercise: Normal Chest Pain: No. Arrhythmia: No. ST Change: No. INTERPRETATION Stress EKG Conclusion: Baseline EKG showed sinus rhythm. No ischemic changes at peak stress. No arr hythmias. Imaging Protocol IMAGE PROTOCOL: Rest Tc-99m/stress Tc-99m 2 days Rest: Stress: Viability: Radiopharm.Tc99m [id number] Sestamibi Dose33.7mCi 34mCi Img Date 01/09/2017 01/10/2017 Inj-Img Usxk52bml. 180min. Rest Admin Site:IV - Left AntecubitalAdministrator:JADA Rivera Stress Admin Site: IV - Left AntecubitalAdministrator: Abdulaziz Becker, RT (R)(N) STRESS DATA End Diast. Vol.88.0mlAv. Heart Rate65.0bpm End Syst. Vol.26.0mlCO Index BSA0.0L/min Myocardial Mdpg863.0gEject. Hvkuxida34.0% Stress Rates Pk. Fill Rate2.63EDV/secLVtime Pk. Fill 142.11msec Pk. Empty Rate3.70ESV/secLVtime Pk. Qgttp419.95msec 10/02 Pk. Fill1.63EDV/sec Stress Scores Regional WT0.00Summed WT4.00 Regional WM0.00Summed WM3.00 Study quality was good. Left Ventricular size was Normal at Rest and Stress. Lung uptake was Normal. Left Ventricular ejection fraction is 70%. The rest and stress images show normal perfusion, normal contraction and thickening. LV Perf. Quant 17 Seg. SSS1.00 17 Seg. SRS17.00 17 Seg. SDS0.00 Stress Defect Extent (% LAD)7.50Rest Defect Extent (% LAD)26.90Rev. Defect Extent (% LAD)0.00 Stress Defect Extent (% LCX) 0.00Rest Defect Extent (% LCX)41.30Rev. Defect Extent (% LCX)0.00 Stress Defect Extent (% RCA)0.00Rest Defect Extent (% RCA)37.80Rev. Defect Extent (% RCA)0.00 Stress Defect Extent (% GAVIN)3.30Rest Defect Extent (% GAVIN)38.90Rev. Defect Extent (% GAVIN)0.00 Conclusion 1. Regadenoson cardioisotope stress test did not show any evidence of ischemia or infarct. 2. Normal left ventricular systolic function with ejection fraction calculated at 70%. 3. Low risk for cardiac events.
[2017-01-10 15:00] VITALS: BP 104/63
--- NOTE | 2017-01-10 19:06 | PDOC2 ---
NEUROLOGY CONSULT Date of Admission Date of Admission DATE: 01/10/17 TIME: 18:56 Reason for Consult Reason for Consult: IMPRESSION: Intermittent vertigo x 2 months. BPPV HTN HLD RLS GERD Pulmonary hypertension, mild. Obesity No evidence of acute CVA this time. RECOMMENDATIONS/PLAN: Meclizine 25 mg tid. Treat medical diseases. Suggest see ENT specialist. Weight reduction. HISTORY OF THE PRESENT ILLNESS: 66-y-old female patient with above medical disease has been having intermittent vertigo for about 2 months. She stated she only has vertigo symptoms at lying position, but not at sitting, standing or walking position. She has sense of self spinning in either right and left sided position in lying and she had nausea several times. When she changed position from lying to sitting or standing, her vertigo was significantly improved. No focalized motor or sensory deficits. PAST MEDICAL HISTORY: Please see above. PAST SURGERY HISTORY: Knee surgery. ALLERGY: Reviewed. MEDICATIONS: Refer to [facility] FAMILY HISTORY: Non contributory. SOCIAL HISTORY: Denies illicit drug use. REVIEW OF SYSTEMS: Constitutional: Obese. Head: No traumatic brain or head injury. Skin: No edema, or rash. Ear: No infection or tinnitus. Eyes: No vision loss or color blindness. Nose: No bleeding or purulent discharges. Hearing: No hearing decrease. Neck: No injury. Breast: No history of cancer, masses,or discharges. Cardiac: HTN, HLD. Pulmonary: No COPD. GI: GERD. Urinary/genital: UTI. Endocrinologic: obesity. Skeletomuscular: No muscular atrophy, deformity. Neurological: see HP. Psychiatric: Denies drug use/abuse. Otherwise, not [id number] review of systems. PHYSICAL EXAMINATION: General appearance is in no acute distress. HEENT: Normocephalic and nontraumatic. Eyes, nose, ears, and throat are unremarkable. Neck is supple. No lymphadenopathy. No crepitus. Cardiovascular: S1, S2, regular rate and rhythm. Pulmonary: Clear to auscultation bilaterally. Abdomen: Bowel sounds are positive. Abdomen is soft, nontender, and nondistended. Extremities: No rash, lesions, or edema. No restriction of range of motion NEUROLOGICAL EXAMINATION: Alert Oriented to time, place and person. PERRL. EOMI. CN: no focal findings. Muscle tone: within normal. Muscle strength: 5- DTR: 2 UE, 1 at knee s/p knee replacement. Plantar reflex: Flexor response bilaterally Gait: At baseline normal. Sensory exam: no abnormal findings. No cerebellar signs elicited. F-T-N test accurate. Current Medications Current Medications Current Medications Morphine Sulfate 2 mg 2 mg PRN Q15MIN PRN IV/SQ PAIN GREATER THAN 3/10 Last administered on 01/09/17 06:47; Start 01/09/17 at 06:30; Stop 01/10/17 at 06:29 ; Status DC Sodium Chloride (Iv Sodium Chloride 0.9% 1000ml Bag) 1,000 ml @ 1,000 mls/hr Q1H IV Last administered on 01/09/17 06:42; Start 01/09/17 at 06:30; Stop 09/15 at 07:29; Status DC Ondansetron HCl (Zofran) 4 mg PRN Q8HRS PRN IV NAUSEA/VOMITING; Start 01/09/17 at 08:15; Stop 01/10/17 at 08:14; Status DC Aspirin 325 mg 325 mg 1X ONCE PO Last administered on 01/09/17 09:34; Start 01/09/17 at 08:30; Stop 01/09/17 at 08:31; Status DC Magnesium Sulfate/ Dextrose (Magnesium Sulfate PREMIX 2GM) 50 ml @ 25 mls/hr 1X ONCE IV Last administered on 01/09/17 09:35; Start 01/09/17 at 09:00; Stop 01/09/17 at 10:59; Status DC Iohexol (Omnipaque 300 Mg/ml) 75 ml 1X ONCE IV Last administered on 01/09/17 10:34; Start 01/09/17 at 10:15; Stop 01/09/17 at 10:16; Status DC Info (Do NOT chart on this entry -- for MONITORING) 1 each PRN DAILY PRN MC SEE COMMENTS; Start 01/09/17 at 10:15; Stop 01/11/17 at 10:14 Morphine Sulfate 2 mg PRN Q2HR PRN IV PAIN; Start 01/09/17 at 16:15 Fluticasone Propionate (Flonase) 2 spray DAILY NS ; Start 01/10/17 at 09:00 Hydralazine HCl (Apresoline) 50 mg TID PO Last administered on 01/10/17 10:34 ; Start 01/09/17 at 16:30 Hydrochlorothiazide (Hydrodiuril) 25 mg DAILY PO Last administered on 10:34; Start 01/09/17 at 16:30 Acetaminophen/ Hydrocodone Bitart (Lortab 5/325) 1 tab Q6HRS PRN PO PAIN Last administered on 01/10/17 10:32; Start 01/09/17 at 16:15 Metoprolol Succinate (Toprol Xl) 50 mg DAILY PO Last administered on 01/10/17 10:33; Start 01/09/17 at 16:30 Regadenoson (Lexiscan) 0.4 mg 1X ONCE IV Last administered on 01/10/17 07:45 ; Start 01/10/17 at 07:45; Stop 01/10/17 at 07:46; Status DC Aspirin (Ecotrin) 81 mg DAILYWBKFT PO ; Start 01/10/17 at 15:00 Active Scripts Active Reported Hydrocodone-Apap 5-325 (Hydrocodone Bit/Acetaminophen) 1 Each Tablet 1 Tab PO Q4-6 PRN Fluticasone Propionate Nasal [place] (Fluticasone Propionate) 16 Gm [place].susp 2 [place] IH DAILY Metoprolol Succinate 50 Mg Tab.er.24h 50 Mg PO DAILY Hydrochlorothiazide Tablet (Hydrochlorothiazide) 25 Mg Tablet 25 Mg PO DAILY Hydralazine Hcl 50 Mg Tablet 50 Mg PO TID Allergies Allergies: Coded Allergies: No Known Drug Allergies (Unverified , 01/09/17) Vitals VITALS Vital Signs Date Time Temp Pulse Resp B/P Pulse Ox O2 Delivery O2 Flow Rate FiO2 01/10/17 15:00 98.0 65 17 104/63 92 Room Air 98.0 Labs Labs Laboratory Tests Test 01/09/17 06:34 01/09/17 07:12 01/09/17 14:05 01/09/17 20:15 White Blood Count 12.1x10^3/uL (4.0-11.0) Red Blood Count 4.24x10^6/uL (3.50-5.40) Hemoglobin 13.8g/dL (12.0-15.5) Hematocrit 39.7% (36.0-47.0) Mean Corpuscular Volume 94fL (79-100) Mean Corpuscular Hemoglobin 33pg (25-35) Mean Corpuscular Hemoglobin Concent 35g/dL (31-37) Red Cell Distribution Width 13.6% (11.5-14.5) Platelet Count 225x10^3/uL (140-400) Neutrophils (%) (Auto) 88% (31-73) Lymphocytes (%) (Auto) 7% (24-48) Monocytes (%) (Auto) 4% (0-9) Eosinophils (%) (Auto) 1% (0-3) Basophils (%) (Auto) 1% (0-3) Neutrophils # (Auto) 10.6x10^3uL (1.8-7.7) Lymphocytes # (Auto) 0.9x10^3/uL (1.0-4.8) Monocytes # (Auto) 0.5x10^3/uL (0.0-1.1) Eosinophils # (Auto) 0.1x10^3/uL (0.0-0.7) Basophils # (Auto) 0.1x10^3/uL (0.0-0.2) Segmented Neutrophils % 88% (35-66) Band Neutrophils % 7% (0-9) Lymphocytes % 4% (24-48) Monocytes % 1% (0-10) Platelet Estimate Adequate (ADEQUATE) Prothrombin Time 12.8SEC (11.7-14.0) Prothromb Time International Ratio 1.0 (0.8-1.1) Sodium Level 138mmol/L (136-145) Potassium Level 3.7mmol/L (3.5-5.1) Chloride Level 101mmol/L (98-107) Carbon Dioxide Level 29mmol/L (21-32) Anion Gap 8 (6-14) Blood Urea Nitrogen 14mg/dL (7-20) Creatinine 0.8mg/dL (0.6-1.0) Estimated GFR (Cockcroft-Gault) 72.2 Glucose Level 122mg/dL (70-99) Calcium Level 8.7mg/dL (8.5-10.1) Magnesium Level 1.6mg/dL (1.8-2.4) Total Bilirubin 0.3mg/dL (0.2-1.0) Direct Bilirubin 0.1mg/dL (0.0-0.2) Aspartate Amino Transf (AST/SGOT) 20U/L (15-37) Alanine Aminotransferase (ALT/SGPT) 28U/L (14-59) Alkaline Phosphatase 98U/L (46-116) Creatine Kinase 73U/L (26-192) Creatine Kinase MB (Mass) 0.7ng/mL (0.0-3.6) Creatine Kinase MB Relative Index 1.0% (0-4) Troponin I Quantitative < 0.017ng/mL (0.000-0.055) < 0.017ng/mL (0.000-0.055) < 0.017ng/mL (0.000-0.055) TU-Dhq-G-Type Natriuretic Peptide 177pg/mL (0-124) Total Protein 7.6g/dL (6.4-8.2) Albumin 3.2g/dL (3.4-5.0) Triglycerides Level 43mg/dL (0-150) Cholesterol Level 186mg/dL (0-200) LDL Cholesterol, Calculated 98mg/dL (0-100) VLDL Cholesterol, Calculated 9mg/dL (0-40) HDL Cholesterol 79mg/dL (40-60) Cholesterol/HDL Ratio 2.4 Lipase 81U/L (73-393) Thyroid Stimulating Hormone (TSH) 1.107uIU/mL (0.358-3.74) Urine Collection Type Unknown Urine Color Yellow Urine Clarity Turbid Urine pH 8.0 Urine Specific [place] 1.020 Urine Protein Negativemg/dL (NEG-TRACE) Urine Glucose (UA) Negativemg/dL (NEG) Urine Ketones (Stick) Negativemg/dL (NEG) Urine Blood Negative (NEG) Urine Nitrite Negative (NEG) Urine Bilirubin Negative (NEG) Urine Urobilinogen Dipstick 0.2mg/dL (0.2 mg/dL) Urine Leukocyte Esterase Negative (NEG) Urine RBC 0/HPF (0-2) Urine WBC 0/HPF (0-4) Urine Squamous Epithelial Cells Few/LPF Urine Amorphous Sediment Present/HPF Urine Bacteria 0/HPF (0-FEW) Test 01/10/17 05:55 White Blood Count 7.3x10^3/uL (4.0-11.0) Red Blood Count 4.12x10^6/uL (3.50-5.40) Hemoglobin 13.0g/dL (12.0-15.5) Hematocrit 39.7% (36.0-47.0) Mean Corpuscular Volume 97fL (79-100) Mean Corpuscular Hemoglobin 32pg (25-35) Mean Corpuscular Hemoglobin Concent 33g/dL (31-37) Red Cell Distribution Width 13.6% (11.5-14.5) Platelet Count 210x10^3/uL (140-400) Neutrophils (%) (Auto) 77% (31-73) Lymphocytes (%) (Auto) 16% (24-48) Monocytes (%) (Auto) 6% (0-9) Eosinophils (%) (Auto) 1% (0-3) Basophils (%) (Auto) 0% (0-3) Neutrophils # (Auto) 5.6x10^3uL (1.8-7.7) Lymphocytes # (Auto) 1.2x10^3/uL (1.0-4.8) Monocytes # (Auto) 0.5x10^3/uL (0.0-1.1) Eosinophils # (Auto) 0.1x10^3/uL (0.0-0.7) Basophils # (Auto) 0.0x10^3/uL (0.0-0.2) Sodium Level 140mmol/L (136-145) Potassium Level 3.6mmol/L (3.5-5.1) Chloride Level 102mmol/L (98-107) Carbon Dioxide Level 31mmol/L (21-32) Anion Gap 7 (6-14) Blood Urea Nitrogen 11mg/dL (7-20) Creatinine 0.7mg/dL (0.6-1.0) Estimated GFR (Cockcroft-Gault) 84.2 Glucose Level 101mg/dL (70-99) Calcium Level 8.4mg/dL (8.5-10.1) Laboratory Tests Test 01/09/17 20:15 01/10/17 05:55 Troponin I Quantitative < 0.017ng/mL (0.000-0.055) White Blood Count 7.3x10^3/uL (4.0-11.0) Red Blood Count 4.12x10^6/uL (3.50-5.40) Hemoglobin 13.0g/dL (12.0-15.5) Hematocrit 39.7% (36.0-47.0) Mean Corpuscular Volume 97fL (79-100) Mean Corpuscular Hemoglobin 32pg (25-35) Mean Corpuscular Hemoglobin Concent 33g/dL (31-37) Red Cell Distribution Width 13.6% (11.5-14.5) Platelet Count 210x10^3/uL (140-400) Neutrophils (%) (Auto) 77% (31-73) Lymphocytes (%) (Auto) 16% (24-48) Monocytes (%) (Auto) 6% (0-9) Eosinophils (%) (Auto) 1% (0-3) Basophils (%) (Auto) 0% (0-3) Neutrophils # (Auto) 5.6x10^3uL (1.8-7.7) Lymphocytes # (Auto) 1.2x10^3/uL (1.0-4.8) Monocytes # (Auto) 0.5x10^3/uL (0.0-1.1) Eosinophils # (Auto) 0.1x10^3/uL (0.0-0.7) Basophils # (Auto) 0.0x10^3/uL (0.0-0.2) Sodium Level 140mmol/L (136-145) Potassium Level 3.6mmol/L (3.5-5.1) Chloride Level 102mmol/L (98-107) Carbon Dioxide Level 31mmol/L (21-32) Anion Gap 7 (6-14) Blood Urea Nitrogen 11mg/dL (7-20) Creatinine 0.7mg/dL (0.6-1.0) Estimated GFR (Cockcroft-Gault) 84.2 Glucose Level 101mg/dL (70-99) Calcium Level 8.4mg/dL (8.5-10.1) DEVIN CONNOR MD Jan 10, 2017 19:06
[2017-01-10 19:35] VITALS: BP 108/63
[2017-01-10] MEDS: MECLIZINE HCL 12.5 MG TABLET. PO SCH (20:58)
[2017-01-11 07:00] VITALS: BP 105/68
[2017-01-11] MEDS: FLUTICASONE 50MCG/NASAL SPRAY 16GM BOTTLE. NS SCH (09:00)
[2017-01-11] MEDS: METOPROLOL SUCC 24HR ER 50 MG TAB.ER.24H. PO SCH (09:53)
[2017-01-11] MEDS: ASPIRIN ENTERIC COATED 81 MG TABLET.DR. PO SCH (09:53)
[2017-01-11] MEDS: HYDRALAZINE 50 MG TABLET PO SCH (09:53)
[2017-01-11] MEDS: HYDROCHLOROTHIAZIDE 25 MG TABLET PO SCH (09:54)
[2017-01-11] MEDS: MECLIZINE HCL 12.5 MG TABLET. PO SCH (09:54)
[2017-01-11 10:44] VITALS: BP 106/65
[2017-01-11] MEDS ORDERED: Meclizine Hcl PO (12:01)
[2017-01-11 14:08] VITALS: BP 106/65
--- NOTE | 2017-01-11 15:21 | PDOC ---
PROGRESS NOTES Assessment Assessment Intermittent vertigo x 2 months. 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 HTN HLD RLS GERD Pulmonary hypertension, mild. Obesity No evidence of acute CVA this time. RECOMMENDATIONS/PLAN: Meclizine 25 mg tid for short term. Treat medical diseases. Suggest see ENT specialist. Weight reduction. FU with PCP. HISTORY OF THE PRESENT ILLNESS: 66-y-old female patient with above medical disease has been having intermittent vertigo for about 2 months. She stated she only has vertigo symptoms at lying position, but not at sitting, standing or walking position. She has sense of self spinning in either right and left sided position in lying and she had nausea several times. When she changed position from lying to sitting or standing, her vertigo was significantly improved. No focalized motor or sensory deficits. Vertigo resolved on 01/11. PAST MEDICAL HISTORY: Please see above. PAST SURGERY HISTORY: Knee surgery. ALLERGY: Reviewed. MEDICATIONS: Refer to [facility] FAMILY HISTORY: Non contributory. SOCIAL HISTORY: Denies illicit drug use. REVIEW OF SYSTEMS: Constitutional: Obese. Head: No traumatic brain or head injury. Skin: No edema, or rash. Ear: No infection or tinnitus. Eyes: No vision loss or color blindness. Nose: No bleeding or purulent discharges. Hearing: No hearing decrease. Neck: No injury. Breast: No history of cancer, masses,or discharges. Cardiac: HTN, HLD. Pulmonary: No COPD. GI: GERD. Urinary/genital: UTI. Endocrinologic: obesity. Skeletomuscular: No muscular atrophy, deformity. Neurological: see HP. Psychiatric: Denies drug use/abuse. Otherwise, not [id number] review of systems. PHYSICAL EXAMINATION: General appearance is in no acute distress. HEENT: Normocephalic and nontraumatic. Eyes, nose, ears, and throat are unremarkable. Neck is supple. No lymphadenopathy. No crepitus. Cardiovascular: S1, S2, regular rate and rhythm. Pulmonary: Clear to auscultation bilaterally. Abdomen: Bowel sounds are positive. Abdomen is soft, nontender, and nondistended. Extremities: No rash, lesions, or edema. No restriction of range of motion NEUROLOGICAL EXAMINATION: Alert Oriented to time, place and person. PERRL. EOMI. CN: no focal findings. Muscle tone: within normal. Muscle strength: 5- DTR: 2 UE, 1 at knee s/p knee replacement. Plantar reflex: Flexor response bilaterally Gait: At baseline normal. Sensory exam: no abnormal findings. No cerebellar signs elicited. F-T-N test accurate. Objective Objective Vital Signs Date Time Temp Pulse Resp B/P Pulse Ox O2 Delivery O2 Flow Rate FiO2 01/11/17 14:08 98.0 76 106/65 92 Room Air 98.0 01/11/17 10:44 18 Intake and Output 01/11/17 06:59 Intake Total 820 ml Balance 820 ml Intake Oral 820 ml # Voids 6 Vitals Signs Vitals VS - Last 72 Hours, by Label Date Time Temp Pulse Resp B/P Pulse Ox O2 Delivery O2 Flow Rate FiO2 01/11/17 14:08 98.0 76 106/65 92 Room Air 98.0 01/11/17 10:44 98.0 76 18 106/65 92 Room Air 98.0 01/11/17 09:53 74 105/68 01/11/17 09:53 74 105/68 01/11/17 08:00 Room Air 01/11/17 07:00 98.1 74 16 105/68 91 Room Air 98.1 01/10/17 22:02 18 Room Air 01/10/17 20:59 18 Room Air 01/10/17 20:58 69 108/63 01/10/17 20:00 Room Air 01/10/17 19:35 98.2 69 16 108/63 92 Room Air 98.2 01/10/17 15:00 98.0 65 17 104/63 92 Room Air 98.0 01/10/17 14:00 65 104/63 01/10/17 10:34 76 116/66 01/10/17 10:33 76 116/66 01/10/17 10:32 18 Room Air 01/10/17 08:10 Room Air Medication Medications Current Medications Meclizine HCl (Antivert) 25 mg TID PO Last administered on 01/11/17t 09:54; Start 01/10/17 at 21:00; Stop 01/11/17 at 15:00; Status DC Comment Review of Relevant I have reviewed the following items shyla (where applicable) has been applied. DEVIN CONNOR MD Jan 11, 2017 15:21
== END 2017-01-11 15:00 | disposition home or self-care (01) ==
LOC: ER 06:14 → ED HOLD 08:10 → INTOOBSV 08:10 → 5 SOUTH 11:09
PROVIDERS: ADMIT Internal Medicine; ATTEND Internal Medicine
DX: R07.89 Other chest pain (principal); R42 Dizziness and giddiness; F41.9 Anxiety disorder, unspecified; I10 Essential (primary) hypertension; E78.5 Hyperlipidemia, unspecified; G25.81 Restless legs syndrome; K21.9 Gastro-esophageal reflux disease without esophagitis; I27.2 Other secondary pulmonary hypertension; E66.01 Morbid (severe) obesity due to excess calories; G43.909 Migraine, unspecified, not intractable, without status migrainosus; E83.42 Hypomagnesemia; I83.90 Asymptomatic varicose veins of unspecified lower extremity; M19.90 Unspecified osteoarthritis, unspecified site; Z96.653 Presence of artificial knee joint, bilateral; Z82.49 Family history of ischemic heart disease and other diseases of the circulatory system; Z82.41 Family history of sudden cardiac death
CPT/HCPCS: 36415; 70450; 70551; 71010; 71275; 78452; 80048; 80061; 80076; 81001; 82553; 83690; 83735; 83880; 84443; 84484; 85007; 85027; 85610; 93005; 93017; 93306; 96361; 96365; 96366; 96375; 99285; A9500; G0378; J2270; J2785; J7030; J7060; J8597; Q9967; 96374; 96376; G0379